=== PATIENT | male | born 1980 | race Caucasian/White ===

== ENCOUNTER 2016-10-23 10:27 | Inpatient (IN) ==
[2016-10-23] MEDS ORDERED: NORCO-10 PO ONE (11:45)
[2016-10-23] MEDS ORDERED: NS 1,000 ML IV ONE (11:45)
[2016-10-23] MEDS ORDERED: ZOFRAN IV ONE ×2 (11:45→13:29)
[2016-10-23 12:04] LABS: MANUAL DIFF NEEDED? NO
[2016-10-23 12:20] LABS: HEMOGLOBIN A1C 7.7 % (4.8-6.0)
[2016-10-23 12:22] LABS: BASO% 0.2 % (0.0-0.8); EOS# 0.01 X1000 (0.0-0.7); EOS% 0.1 % (0.0-10.0); HEMATOCRIT 39.6 % (42.0-52.0); HEMOGLOBIN 13.6 g/dL (14.0-18.0); IMM GRAN# 0.04 X1000 (0.0-0.04); IMM GRAN% 0.3 % (0.0-0.5); LYMPH# 0.72 X1000 (1.2-3.4); MCHC 34.3 g/dL (33-37); MCV 87.4 FL (81-99); MONO# 1.12 X1000 (0.11-0.59); MONO% 9.4 % (1.7-9.3); MPV 11.5 FL (7.4-10.4); PLT 86 X1000 (130-400); RBC 4.53 XMIL (4.7-6.1)
[2016-10-23 12:25] LABS: AGAP 13; ALBUMIN 3.6 g/dL (3.5-5.0); ALKALINE PHOSPHATASE 83 U/L (32-122); AMYLASE 16 U/L (20-200); BUN 8 mg/dL (8-22); CALCIUM 8.6 mg/dL (8.8-10.2); CHLORIDE 93 mmol/L (98-107); COSMO 263; GOT 94 U/L (10-34); GPT 123 U/L (10-44); LIPASE 24 U/L (13-60); POTASSIUM 3.6 mmol/L (3.5-5.1); SODIUM 128 mmol/L (136-145); TCO2 22 mmol/L (25-35)
[2016-10-23 12:39] LABS: URINE CULTURE PL NEEDED? NO
[2016-10-23 12:48] LABS: UR AMPHETAMINES QUAL NONE DETECTED (NONE DETECT); UR BARBITUATES QUAL NONE DETECTED (NONE DETECT); UR BENZODIAZEPIN QUAL PRESUMPTIVE POSITIVE (NONE DETECT); UR CANNABINOIDS QUAL NONE DETECTED (NONE DETECT); UR COCAINE QUAL NONE DETECTED (NONE DETECT); UR MDMA QUAL NONE DETECTED (NONE DETECT); UR METHADONE QUAL NONE DETECTED (NONE DETECT); UR METHAMPHETAMINE QUAL NONE DETECTED (NONE DETECT); UR OPIATES QUAL NONE DETECTED (NONE DETECT); UR OXYCODONE QUAL NONE DETECTED (NONE DETECT); UR PCP QUAL NONE DETECTED (NONE DETECT); UR TCA QUAL NONE DETECTED (NONE DETECT)
[2016-10-23 12:51] LABS: BILIRUBIN URINE NEGATIVE (NEGATIVE); BLOOD URINE TRACE (NEGATIVE); CLARITY CLEAR (CLEAR); COLOR AMBER; LEUKOCYTES URINE TRACE (NEGATIVE); NITRITE URINE NEGATIVE (NEGATIVE); PROTEIN URINE 1+(30 mg/dL) mg/dL (NEGATIVE); SP GRAVITY URINE 1.015; UROBILINOGEN URINE 1+(1 mg/dL)
[2016-10-23 12:52] LABS: URINE EPITHELIAL CELLS <10 /HPF (<10); URINE RBC <10 /HPF (<10); URINE SOURCE CLEAN CATCH; URINE WBC <10 /HPF (<10)
--- NOTE | 2016-10-23 13:13 | Diag Imaging Result Document ---
PROCEDURE NAME: LUMBAR SPINE - 10/23/2016 LUMBAR SPINE AP AND LATERAL WITH OBLIQUES, 6 VIEWS: FINDINGS: There is a mild superior endplate compression fracture to the L1 vertebra. Loss of height of between 25 and 33%. No other compressed vertebra. No subluxation. IMPRESSION: Mild compression fracture to the L1 vertebra.
[2016-10-23] MEDS ORDERED: MORPHINE IV ONE (13:21)
[2016-10-23] MEDS ORDERED: DILAUDID IV ONE (14:28)
[2016-10-23] MEDS ORDERED: DILAUDID ONE (14:29)
--- NOTE | 2016-10-23 14:47 | Diag Imaging Result Document ---
PROCEDURE NAME: MRI LUMBAR SPINE W/O CONTRAST - 10/23/2016 MRI LUMBAR SPINE WITHOUT: FINDINGS: Axial and sagittal images obtained in multiple sequences. There is edema within the upper half of the L1 vertebral. There is loss of height, approximately 25%, to the superior endplate. No other compression fracture. No subluxation. The conus is at L1. There are normal disks at the following levels: T12-L1, L1-2, L2-3, and L3-4. No spinal stenosis or neural foraminal narrowing at these levels. L4-5: There is a small disk bulge. Bilateral facet hypertrophy is present. There is mild spinal stenosis. Mild narrowing at each neural foramen. There is moderate bulging to the L5-S1 disk. Small focal disk protrusion on the right. There is mild to moderate narrowing of the right neural foramen. No spinal stenosis. IMPRESSION: 1. Mild recent compression fracture to the L1 vertebra. 2. Small focal disk protrusion on the right at L5-S1 narrowing the right neural foramen. A preliminary report was given at 2:32 p.m. [facility]
[2016-10-23] MEDS ORDERED: TYLENOL ONE (15:20)
[2016-10-23] MEDS ORDERED: MOTRIN ONE (15:20)
[2016-10-23] MEDS ORDERED: TYLENOL PO ONE (15:27)
[2016-10-23] MEDS ORDERED: MOTRIN PO ONE (15:27)
--- NOTE | 2016-10-23 16:06 | Diag Imaging Result Document ---
PROCEDURE NAME: US SCROTUM - 10/23/2016 SCROTAL ULTRASOUND: FINDINGS: Normal size to each testicle. The left testicle has slightly increased blood flow to it than the right. Normal echotexture to the left testicle. Slightly heterogeneous hypoechoic echotexture on the right. Tiny amount of fluid about the right testicle. Neither epididymis is enlarged. IMPRESSION: The right testicle is slightly heterogeneous compared to the left and has slightly decreased blood flow than the left. The results were discussed with Dr. Yeh in the emergency room at 3:15 p.m.
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
[2016-10-23] MEDS ORDERED: LEVAQUIN 750 MG/D5W 750 MG/150 ML IVPB IV ONE (16:24)
[2016-10-23] MEDS ORDERED: VANCOMYCIN 1 GM/NS 1 GM/250 ML IVPB IV ONE (16:24)
--- NOTE | 2016-10-23 17:22 | Diag Imaging Result Document ---
PROCEDURE NAME: CHEST-PORTABLE - 10/23/2016 SUPINE CHEST 2 VIEWS: FINDINGS: Poor inspiratory effort. The lungs are clear. There are no infiltrates. No contusions or pneumothoraces. Mediastinum is not widened. No pleural effusions identified. No cardiomegaly. IMPRESSION: Negative chest.
[2016-10-23] MEDS ORDERED: ZOFRAN IV PRN (17:38)
[2016-10-23] MEDS ORDERED: VANCOMYCIN IV PER PHARMACY MISC SCH (17:45)
[2016-10-23] MEDS: PROTONIX IV SCH (18:29)
[2016-10-23] MEDS: NS 1,000 ML IV SCH (18:29)
[2016-10-23] MEDS: SODIUM CHLORIDE 0.9% INJ SCH (18:29)
[2016-10-23] MEDS: DILAUDID IV PRN ×2 (18:44→21:54)
[2016-10-23] MEDS: ZOSYN 3.375 GM/NS 3.375 GM/50 ML IVPB IV SCH (20:23)
[2016-10-23] MEDS: VANCOMYCIN 2,000 MG in NS 500 ML IV SCH (20:23)
[2016-10-23] MEDS: DOXYCYCLINE PO SCH (20:23)
[2016-10-23] MEDS ORDERED: RESTORIL PO PRN (20:44)
[2016-10-23] MEDS: HUMALOG DOSE (PARKWAY) SUBQ SCH (21:04)
[2016-10-24] MEDS: LACTULOSE PO SCH ×3 (00:10→20:45)
[2016-10-24] MEDS ORDERED: TYLENOL PO PRN (00:11)
[2016-10-24] MEDS ORDERED: TYLENOL PO ONE (01:08)
[2016-10-24] MEDS: DILAUDID IV PRN ×7 (01:13→21:37)
[2016-10-24] MEDS: ZOSYN 3.375 GM/NS 3.375 GM/50 ML IVPB IV SCH ×2 (01:20→08:03)
[2016-10-24] MEDS: PROTONIX IV SCH ×3 (05:06→18:23)
[2016-10-24] MEDS: HUMALOG DOSE (PARKWAY) SUBQ SCH ×4 (06:07→22:05)
[2016-10-24 06:27] LABS: HEMATOCRIT 37.7 % (42.0-52.0); HEMOGLOBIN 12.7 g/dL (14.0-18.0); MCH 29.6 PG (27-31); MCHC 33.7 g/dL (33-37); MCV 87.9 FL (81-99); MPV 11.8 FL (7.4-10.4); RBC 4.29 XMIL (4.7-6.1)
[2016-10-24 06:44] LABS: AGAP 10; ALKALINE PHOSPHATASE 72 U/L (32-122); BUN 6 mg/dL (8-22); CALCIUM 8.3 mg/dL (8.8-10.2); CHLORIDE 99 mmol/L (98-107); COSMO 267; GOT 60 U/L (10-34); GPT 83 U/L (10-44); MAGNESIUM 1.7 mg/dL (1.5-2.7); POTASSIUM 3.7 mmol/L (3.5-5.1); SODIUM 132 mmol/L (136-145); TCO2 23 mmol/L (25-35); TOTAL PROTEIN 6.9 g/dL (6.3-8.3)
[2016-10-24] MEDS ORDERED: DILAUDID IV PRN (08:28)
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
[2016-10-24] MEDS: VANCOMYCIN 2,000 MG in NS 500 ML IV SCH ×2 (09:04→19:27)
[2016-10-24] MEDS: DOXYCYCLINE PO SCH ×2 (09:05→20:45)
--- NOTE | 2016-10-24 12:30 | Diag Imaging Result Document ---
PROCEDURE NAME: ABDOMEN/PELVIS W/WO CONTRAST - 10/24/2016 CT OF THE ABDOMEN AND PELVIS WITHOUT AND WITH CONTRAST: Images are obtained prior to and following intravenous contrast administration. COMPARISON: Compared with 04/01/2015. FINDINGS: There are tiny bilateral pleural effusions. There is hepatomegaly. The left lobe of the liver is particularly prominent in size but this appears to be largely chronic. There is possibly mild fatty infiltration of the liver. There is no focal liver lesion identified. There is splenomegaly with some interval enlargement of spleen compared to previous exam. There is a thin low-density area in the posterior superior aspect of the spleen. This may represent a small cleft which is more conspicuous on the current exam due to some technical improvement in detail. There is no associated perisplenic hemorrhage, which would be expected with a peripheral splenic laceration. There is mild retroperitoneal adenopathy which has increased. The gallbladder is surgically absent. There is distention of the common bile duct up to 2 cm, similar to the previous exam. There is no calcified common duct stone identified. There is no pancreatic mass or definite pancreatic inflammation identified. The distended common bile duct may represent post cholecystectomy change. There is no opaque stent present in the common bile duct. There is no gross intrahepatic biliary ductal dilatation identified. The adrenal glands and kidneys are unremarkable. There is no hydronephrosis. There is some mild distention of small bowel and colon, which may relate to ileus. The appendix appears normal. There is questionable pneumatosis in the right colon, but the right colon fuentes do not appear thickened, and there is no inflammation of pericolic fat. There is no other extraluminal gas identified. There is no abscess identified. There is no free air. There is minimal free fluid. There is mild compression fracture of the L1 vertebral body noted as seen on 09/2016 MRI lumbar spine. IMPRESSION: 1. Hepatosplenomegaly. No focal liver lesions. Probable small cleft in the posterior superior spleen. No perisplenic hemorrhage. 2. Distention of common bile duct similar to the previous exam and possibly related to the post cholecystectomy state. There is no opaque stent seen in the common bile duct. There is no gross intrahepatic biliary ductal dilatation identified. 3. Mild retroperitoneal adenopathy. 4. Mild distention of small bowel and colon which may relate to ileus. Questionable pneumatosis at right colon but no associated wall thickening. 5. Minimal free fluid. No free air. No abscess. 6. Mild compression fracture of L1 vertebral body noted. [facility]
[2016-10-24] MEDS ORDERED: MISC. PHARMACY COMMUNICATION SCH (13:00)
[2016-10-24] MEDS: MAXIPIME 2 GM/NS 2 GM/100 ML IVPB IV SCH ×2 (14:34→23:10)
[2016-10-24] MEDS: NS 1,000 ML IV SCH ×2 (15:43→17:08)
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
[2016-10-24] MEDS: SODIUM CHLORIDE 0.9% INJ SCH (18:14)
[2016-10-24] MEDS: MERREM 1 GM in NS 50 ML IV SCH (21:43)
[2016-10-24] MEDS: TYLENOL PO PRN (22:12)
[2016-10-25] MEDS: DILAUDID IV PRN ×7 (01:51→21:33)
[2016-10-25] MEDS: PROTONIX IV SCH ×2 (05:07→17:45)
[2016-10-25] MEDS: MERREM 1 GM in NS 50 ML IV SCH ×3 (05:08→21:34)
[2016-10-25] MEDS: MAXIPIME 2 GM/NS 2 GM/100 ML IVPB IV SCH (06:17)
[2016-10-25] MEDS: HUMALOG DOSE (PARKWAY) SUBQ SCH ×4 (06:19→20:54)
[2016-10-25 06:41] LABS: HEMATOCRIT 39.4 % (42.0-52.0); HEMOGLOBIN 13.2 g/dL (14.0-18.0); MCH 29.5 PG (27-31); MCHC 33.5 g/dL (33-37); MCV 87.9 FL (81-99); MPV 12.6 FL (7.4-10.4); RBC 4.48 XMIL (4.7-6.1)
[2016-10-25 06:48] LABS: AGAP 13; ALKALINE PHOSPHATASE 69 U/L (32-122); BUN 9 mg/dL (8-22); CALCIUM 8.3 mg/dL (8.8-10.2); CHLORIDE 100 mmol/L (98-107); COSMO 272; GOT 55 U/L (10-34); GPT 67 U/L (10-44); MAGNESIUM 1.9 mg/dL (1.5-2.7); POTASSIUM 3.4 mmol/L (3.5-5.1); SODIUM 136 mmol/L (136-145); TCO2 23 mmol/L (25-35); TOTAL PROTEIN 7.2 g/dL (6.3-8.3)
[2016-10-25] MEDS: VANCOMYCIN 2,000 MG in NS 500 ML IV SCH ×2 (08:22→19:46)
[2016-10-25] MEDS: LACTULOSE PO SCH ×2 (08:23→20:53)
[2016-10-25] MEDS: DOXYCYCLINE PO SCH ×2 (08:23→20:53)
[2016-10-25] MEDS: TYLENOL PO PRN ×2 (09:02→20:53)
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
[2016-10-25] MEDS: NS 1,000 ML IV SCH ×2 (15:32→15:35)
[2016-10-25] MEDS: SODIUM CHLORIDE 0.9% INJ SCH (17:44)
[2016-10-26] MEDS: DILAUDID IV PRN ×8 (00:30→22:44)
[2016-10-26] MEDS: MERREM 1 GM in NS 50 ML IV SCH ×2 (05:15→13:21)
[2016-10-26] MEDS: PROTONIX IV SCH ×2 (05:15→18:23)
[2016-10-26] MEDS: NS 1,000 ML IV SCH (05:18)
[2016-10-26] MEDS: HUMALOG DOSE (PARKWAY) SUBQ SCH ×4 (06:19→22:43)
[2016-10-26] MEDS: VANCOMYCIN 2,000 MG in NS 500 ML IV SCH ×2 (08:03→20:33)
[2016-10-26] MEDS: LACTULOSE PO SCH ×2 (08:03→20:33)
[2016-10-26] MEDS: DOXYCYCLINE PO SCH (08:03)
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
[2016-10-26] MEDS: TYLENOL PO PRN (18:23)
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
[2016-10-26] MEDS: XANAX PO PRN (22:47)
[2016-10-27] MEDS: TYLENOL PO PRN ×2 (00:21→21:21)
[2016-10-27] MEDS: DILAUDID IV PRN ×7 (01:34→21:15)
[2016-10-27] MEDS: NS 1,000 ML IV SCH ×2 (03:00→21:15)
[2016-10-27] MEDS: PROTONIX IV SCH ×2 (06:06→17:48)
[2016-10-27] MEDS: HUMALOG DOSE (PARKWAY) SUBQ SCH ×4 (06:06→21:25)
[2016-10-27 07:46] LABS: HEMATOCRIT 34.3 % (42.0-52.0); HEMOGLOBIN 11.6 g/dL (14.0-18.0); MCH 29.5 PG (27-31); MCHC 33.8 g/dL (33-37); MCV 87.3 FL (81-99); MPV 11.3 FL (7.4-10.4); RBC 3.93 XMIL (4.7-6.1)
[2016-10-27 08:00] LABS: INR 1.11 (0.86-1.15); PROTIME 14.6 Seconds (12.1-15.5)
[2016-10-27 08:02] LABS: AGAP 14; ALBUMIN 2.8 g/dL (3.5-5.0); ALKALINE PHOSPHATASE 55 U/L (32-122); BUN 8 mg/dL (8-22); CALCIUM 7.8 mg/dL (8.8-10.2); CHLORIDE 98 mmol/L (98-107); COSMO 265; GOT 51 U/L (10-34); GPT 45 U/L (10-44); MAGNESIUM 1.9 mg/dL (1.5-2.7); POTASSIUM 3.2 mmol/L (3.5-5.1); SODIUM 133 mmol/L (136-145); TCO2 21 mmol/L (25-35); TOTAL PROTEIN 6.7 g/dL (6.3-8.3)
[2016-10-27] MEDS ORDERED: NS 250 ML ONE (08:12)
[2016-10-27] MEDS ORDERED: NS 250 ML IV PRN (08:22)
[2016-10-27] MEDS ORDERED: SODIUM CHLORIDE 0.9% IV PRN (08:22)
--- NOTE | 2016-10-27 08:52 | PROGRESS NOTE ---
DATE: 10/27/2016 SUBJECTIVE: Patient notes he still hurting all over, still having frequent fever. PHYSICAL EXAMINATION: Vital Signs: T-current 100, T-max 102.9 degrees at midnight, pulse 78, respiratory rate 24, BP 155/89, saturation 99% on room air. General: Patient is awake, alert, oriented. He is currently in no respiratory distress. He is pleasant to talk with. Neck: Supple. CV: Regular rate. Chest: Clear, nonlabored. Abdomen: Soft. Extremities: Moves all extremities, although decreased movement secondary to pain in his low back. LABS: CBC essentially unchanged. CMP normal with the exception of a potassium at 3.2. ALT and AST continue slight improvement, down at 51 and 45. ASSESSMENT: 1. Moderate protein calorie malnutrition. 2. Acute hepatitis. 3. Hypocalcemia. 4. Methicillin-resistant Staphylococcus aureus septicemia. PLAN: We will attempt to place a PICC line today. We will recheck blood cultures and we will follow. We will continue on vancomycin per ID's discussion. We will continue to follow his diabetes. It is certainly very concerning that the patient has a history of IV drug use, hepatitis C, and continues to abuse opiates at home. It is concerning that he will need IV antibiotics for several more weeks. Him going home with a PICC line certainly may not be our best option but may be the only option that we have. We will continue to follow. cc: Baljinder Urbina MD
--- NOTE | 2016-10-27 10:10 | Diag Imaging Result Document ---
PROCEDURE NAME: CHEST-PORTABLE - 10/27/2016 PORTABLE CHEST: COMPARISON: Compared to 10/23/2016. FINDINGS: Interval placement of a right-sided PICC line. The tip overlies the distal superior vena cava near the junction with the right atrium. The heart is not enlarged. The vessels are not distended. No pleural effusion is identified. Atelectasis versus a small infiltrate in the right base. IMPRESSION: 1. Right-sided PICC line in good position. 2. Poor inspiratory effort with atelectasis or small infiltrate in the right base.
[2016-10-27] MEDS: LACTULOSE PO SCH ×2 (10:12→21:15)
[2016-10-27] MEDS: VANCOMYCIN 2,000 MG in NS 500 ML IV SCH ×2 (11:11→21:14)
--- NOTE | 2016-10-27 14:20 | ECHO REPORT ---
ORDER DATE: 10/25/2016 ECHOCARDIOGRAPHIC MEASUREMENTS: 1. Interventricular septum 1.4. Left ventricular posterior wall 1.4. Diastolic diameter 4.0. Left atrium 5. Aorta 3.2. Aortic valve leaflets were trileaflet. There appeared to be calcification of noncoronary cusp however leaflets not well visualized. 2. Pulmonic valve not well visualized. Mitral valve was normal. Tricuspid valve was normal. 3. There is mild left atrial enlargement . 4. There was trace mitral regurgitation. Mild tricuspid regurgitation. Peak velocity across the tricuspid valve was 3.2 m/sec. 5. Peak velocity across the aortic valve less than 2 m/sec. By Doppler studies there is no aortic stenosis or regurgitation. Technically suboptimal study. 6. Indication for study was to rule out endocarditis. RECOMMENDATIONS: Would recommend transesophageal echocardiogram to rule out endocarditis. This was a technically suboptimal study. There was calcification noted on the non coronary cusp of the aortic valve with not well visualized. To rule out vegetation recommend MAUREEN. There is no pericardial effusion. cc: MD Baljinder Salcedo MD
[2016-10-28] MEDS: DILAUDID IV PRN ×6 (01:10→21:08)
[2016-10-28] MEDS: PROTONIX IV SCH ×2 (06:37→17:01)
[2016-10-28] MEDS: TYLENOL PO PRN ×2 (06:37→16:30)
[2016-10-28] MEDS: SODIUM CHLORIDE 0.9% INJ SCH (06:39)
[2016-10-28] MEDS: HUMALOG DOSE (PARKWAY) SUBQ SCH ×4 (06:39→21:07)
[2016-10-28] MEDS: LACTULOSE PO SCH ×3 (08:03→21:07)
[2016-10-28] MEDS: KLOR-CON PO ONE ×2 (08:03→09:50)
[2016-10-28] MEDS: VANCOMYCIN 2,000 MG in NS 500 ML IV SCH ×2 (09:42→19:56)
[2016-10-28] MEDS ORDERED: CLAVE ANES SET 100 IN 11965 ONE (11:42)
[2016-10-28] MEDS ORDERED: XYLOCAINE 4% TOPICAL SOLUTION ONE (11:42)
[2016-10-28] MEDS ORDERED: NS 1,000 ML ONE (11:42)
[2016-10-28] MEDS ORDERED: XYLOCAINE 2% VISCOUS ONE (11:42)
[2016-10-28] MEDS ORDERED: CLAVE TWINSITE 32 IN 11959 ONE (11:47)
[2016-10-28] MEDS ORDERED: DUONEB (A & A) INH ONE (12:00)
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
[2016-10-28] MEDS ORDERED: DIPRIVAN 1% ONE (12:53)
[2016-10-28] MEDS ORDERED: FENTANYL ONE (12:53)
[2016-10-28] MEDS ORDERED: ZOFRAN ONE (13:03)
[2016-10-28] MEDS ORDERED: XYLOCAINE-MPF 2% ONE (13:03)
--- NOTE | 2016-10-28 13:18 | PROGRESS NOTE ---
DATE: 10/28/2016 SUBJECTIVE: This patient states that he is about the same. He is complaining of generalized pain mostly in his back. No fever today but we have a positive culture that was done yesterday that showed a gram-positive cocci. Today this patient will have a MAUREEN done to rule out endocarditis. For now, we will continue with the same management. OBJECTIVE: Vital Signs: Temperature 99.1 degrees, pulse 83, respiratory rate 18, blood pressure 144/78, O2 saturation 99 on room air. HEENT: Head normocephalic. No trauma. PERRLA. Neck: Supple. No JVD. No masses. Central trachea. Chest: Clear to auscultation. No wheezing. No rales. Abdomen: Soft. Mild tenderness to palpation at the level of the periumbilical area. Extremities: No edema. No clubbing. No cyanosis. Neurological: The patient is alert and oriented x3. No focal neurological deficits. He is complaining of lower back pain. LABORATORY: WBC 6.6, hemoglobin 11.6, hematocrit 34.3, platelets 96,000. Sodium 133, potassium 3.2 chloride 98, bicarbonate 21. BUN 8, creatinine 0.5, glucose 112, calcium 7.8, AST 51, ALT 45, alkaline phosphatase 55, albumin 2.8. ASSESSMENT AND PLAN: 1. MRSA septicemia. Yesterday we did again a blood culture that showed gram-positive cocci. Also a PICC line was placed. Today this patient is getting a MAUREEN to rule out endocarditis. We will continue following the recommendation of Infectious Disease Department. 2. Acute hepatitis. There is mild elevation of LFTs, we will continue to monitor. 3. Hypocalcemia. Corrected with albumin normal. 4. Hyponatremia. Stable will monitor. 5. Hypokalemia. Will replace the potassium. This patient had a PICC line placed yesterday, and it is working fine. He has a past medical history of IV drug use. I have been talking to the social work instructor to see if we can send this patient to an LTAC and not home to decrease the possibility of IV drug abuse again. I talked to the patient and apparently the last time he did IV drugs was a couple months ago. Of course a PICC line is not at this moment our best option but this patient needs IV antibiotics for an extended period of time. cc: Suleiman Venegas MD
--- NOTE | 2016-10-28 15:36 | Transesophageal Echocardiogram ---
DATE: 10/28/2016 PROCEDURE: Transesophageal echocardiogram. DATE OF STUDY: 10/28/2016. INDICATION: Staphylococcus bacteremia. Evaluate for endocarditis. PROCEDURE IN DETAIL: Mr. Santana is brought to the catheterization laboratory in a fasting state. Informed consent was obtained. He was anesthetized via viscous lidocaine and Hurricaine spray. He was sedated with propofol per Anesthesia. Transesophageal echocardiogram probe was passed without difficulties. The images were obtained in multiple views. FINDINGS: 1. The right atrium appears to be normal in size. There is no evidence of shunting across the interatrial septum with evaluation of color Doppler, as well as injection of agitated saline contrast. 2. There is mild tricuspid regurgitation. No evidence of vegetation adherent to the valve. 3. Normal RV size and systolic function. 4. No evidence of significant pulmonic insufficiency. The pulmonic valve was difficult to visualize, but no evidence of vegetation adherent to the valve. 5. There is no evidence of clot visualized in the left atrium or left atrial appendage. Good velocities were visualized in the left atrial appendage. 6. No mitral prolapse. There is mild mitral regurgitation. No evidence of vegetation adherent to the mitral valve leaflets. 7. Left ventricle appears to be normal in size. There is normal LV systolic function. Estimated EF is greater than 55%. 8. Aortic valve appears trileaflet. It opens well. There is no evidence of stenosis. No insufficiency. No evidence of vegetation adherent to the aortic valve. 9. Aorta appears normal in visualized segments with the exception of mild atherosclerosis seen in the descending thoracic aorta. 10. No pericardial effusions seen. cc: MD Paige Mattson CRNP
[2016-10-28] MEDS: RIFAMPIN PO SCH (16:18)
[2016-10-28] MEDS: XANAX PO PRN (16:19)
[2016-10-28] MEDS: NS 1,000 ML IV SCH (19:36)
[2016-10-29] MEDS: DILAUDID IV PRN ×8 (00:40→23:31)
[2016-10-29] MEDS: PROTONIX IV SCH ×2 (05:07→17:51)
[2016-10-29 06:42] LABS: MANUAL DIFF NEEDED? NO
[2016-10-29 06:56] LABS: BASO% 0.5 % (0.0-0.8); EOS# 0.14 X1000 (0.0-0.7); EOS% 2.4 % (0.0-10.0); HEMATOCRIT 33.5 % (42.0-52.0); HEMOGLOBIN 11.1 g/dL (14.0-18.0); IMM GRAN# 0.06 X1000 (0.0-0.04); LYMPH# 1.77 X1000 (1.2-3.4); LYMPH% 29.8 % (20.5-51.1); MCH 29.4 PG (27-31); MCHC 33.1 g/dL (33-37); MCV 88.6 FL (81-99); MONO# 0.47 X1000 (0.11-0.59); MONO% 7.9 % (1.7-9.3); MPV 11.3 FL (7.4-10.4); NEUT% 58.4 % (42.2-75.2); PLT 157 X1000 (130-400); RBC 3.78 XMIL (4.7-6.1)
[2016-10-29 07:15] LABS: AGAP 10; BUN 6 mg/dL (8-22); CALCIUM 7.8 mg/dL (8.8-10.2); CHLORIDE 103 mmol/L (98-107); COSMO 273; POTASSIUM 3.4 mmol/L (3.5-5.1); SODIUM 138 mmol/L (136-145); TCO2 25 mmol/L (25-35)
[2016-10-29] MEDS: HUMALOG DOSE (PARKWAY) SUBQ SCH ×4 (07:28→21:55)
[2016-10-29] MEDS: RIFAMPIN PO SCH (09:01)
[2016-10-29] MEDS: VANCOMYCIN 2,000 MG in NS 500 ML IV SCH ×2 (09:01→20:00)
[2016-10-29] MEDS: LACTULOSE PO SCH ×2 (09:02→20:00)
[2016-10-29] MEDS ORDERED: KLOR-CON PO ONE (10:27)
[2016-10-29] MEDS: NS 1,000 ML IV SCH ×3 (12:09→22:29)
--- NOTE | 2016-10-29 14:31 | PROGRESS NOTE ---
DATE: 10/29/2016 SUBJECTIVE: This patient states that he is feeling a little bit better. He denies nausea, vomiting, diarrhea, constipation. Yesterday, his PICC line was removed because we have a positive culture result that showed Staphylococcus aureus from 10/27/2016. We sent the tip of the PICC line for culture. Infectious Disease department has been notified and they started this patient on rifampin 600 mg IV daily. Also, we will continue with vancomycin. OBJECTIVE: Vital Signs: Temperature 98.9, pulse 74, respiratory rate 18, blood pressure 153/85, oxygen saturation 97% on room air. HEENT: Normocephalic. No trauma. PERRLA. Neck: Supple. No JVD. No masses. Central trachea. Chest: Clear to auscultation. No wheezing. No rales. Abdomen: Soft, nontender, nondistended. No hepatosplenomegaly. Extremities: No edema. No clubbing. No cyanosis. Neurological: The patient is alert and oriented x3. No focal deficits, just generalized weakness and pain. LABORATORY: WBC 5.9, hemoglobin 11.1, hematocrit 33.5, platelet 157. Sodium 138, potassium 3.4, chloride 103, bicarbonate 25. BUN 6, creatinine 0.5, glucose 130, calcium 7.8. ASSESSMENT AND PLAN: 1. MRSA septicemia. Yesterday, we removed his PICC line that was placed the day before yesterday, because we have a positive culture again that showed gram-positive cocci/Staphylococcus aureus. Infectious Disease department added rifampin to his medications. 2. Acute hepatitis. Continue to monitor. 3. Hypokalemia, I will replace the potassium today. 4. Hyponatremia, resolved. cc: Suleiman Venegas MD
[2016-10-29] MEDS: SODIUM CHLORIDE 0.9% INJ SCH (17:51)
[2016-10-29] MEDS: TYLENOL PO PRN (22:30)
[2016-10-29] MEDS: XANAX PO PRN (22:30)
[2016-10-30] MEDS: DILAUDID IV PRN ×6 (02:44→20:35)
[2016-10-30] MEDS: NS 1,000 ML IV SCH ×2 (04:39→18:24)
[2016-10-30] MEDS: PROTONIX IV SCH (05:47)
[2016-10-30] MEDS: HUMALOG DOSE (PARKWAY) SUBQ SCH ×4 (06:06→21:06)
[2016-10-30 06:31] LABS: MANUAL DIFF NEEDED? NO
[2016-10-30 06:35] LABS: BASO% 0.5 % (0.0-0.8); EOS# 0.27 X1000 (0.0-0.7); EOS% 4.5 % (0.0-10.0); HEMATOCRIT 33.7 % (42.0-52.0); HEMOGLOBIN 11.1 g/dL (14.0-18.0); IMM GRAN% 1.7 % (0.0-0.5); LYMPH# 1.92 X1000 (1.2-3.4); LYMPH% 32.2 % (20.5-51.1); MCH 29.2 PG (27-31); MCHC 32.9 g/dL (33-37); MCV 88.7 FL (81-99); MONO# 0.54 X1000 (0.11-0.59); MPV 11.7 FL (7.4-10.4); NEUT% 52.1 % (42.2-75.2); PLT 150 X1000 (130-400)
[2016-10-30 07:14] LABS: AGAP 11; BUN 5 mg/dL (8-22); CALCIUM 7.8 mg/dL (8.8-10.2); CHLORIDE 102 mmol/L (98-107); COSMO 269; POTASSIUM 3.6 mmol/L (3.5-5.1); SODIUM 136 mmol/L (136-145); TCO2 23 mmol/L (25-35)
[2016-10-30] MEDS: VANCOMYCIN 2,000 MG in NS 500 ML IV SCH ×2 (09:36→20:35)
--- NOTE | 2016-10-30 09:48 | PROGRESS NOTE ---
DATE: 10/30/2016 SUBJECTIVE: Patient resting quietly in bed. No complaints voiced at this time. OBJECTIVE: Vital Signs: Currently show a temperature of 98.8, pulse 73, respirations 18, blood pressure 151/93, saturating 99% on room air. It is noted that last night on 10/29/2016 at 8 p.m., he had a temperature of 101.1. Tylenol 650 p.o. was given and he has not had a temp since that time. General: This is a 35-year-old, male, lying in the bed. Answers all questions appropriately. HEENT: Normocephalic and atraumatic. Pupils are equal, round, reactive to light. The extraocular movements are intact. Oropharynx and nares are clear. Neck: Supple. Lungs: Clear to auscultation bilaterally with equal lung expansion and chest wall movement. Heart: With regular rate and rhythm. No murmurs, rubs, or gallops. Abdomen: Soft, nontender, nondistended. Bowel sounds are present x4 quadrants. Extremities: No clubbing, cyanosis, or edema. Neurological: The cranial nerves 2-12 appear grossly intact. LABORATORY DATA: Shows a white blood cell count of 5.97, hemoglobin 11.1, hematocrit 33.7, platelets 150. Sodium 136, potassium 3.6, chloride 102, CO2 of 23, BUN of 5 with a creatinine of 0.5. ASSESSMENT AND PLAN: 1. MRSA septicemia. It is noted as stated above, he had a temperature overnight. He was started on some rifampin 600 mg p.o. daily by Infectious Disease, Dr. Mosher, yesterday. We will not change any of his antibiotics at this time. Our plan is to recheck a set of blood cultures x2 in the a.m. 2. Acute hepatitis. We continue to monitor. 3. Hypokalemia, was resolved. 4. Hypertension. We added Norvasc 5 mg b.i.d. and will continue to monitor his blood pressure. Plan of care has been discussed with the patient and he verbalizes understanding. Dictated by WM Tong for Suleiman Venegas MD cc: WM Tong MD
[2016-10-30] MEDS: RIFAMPIN PO SCH (09:56)
[2016-10-30] MEDS: LACTULOSE PO SCH ×2 (09:56→20:35)
[2016-10-30] MEDS: NORVASC PO SCH ×2 (09:56→20:35)
[2016-10-30] MEDS: TYLENOL PO PRN (17:26)
[2016-10-30] MEDS: XANAX PO PRN (20:35)
[2016-10-31] MEDS: DILAUDID IV PRN ×8 (00:11→22:08)
[2016-10-31 05:53] LABS: MANUAL DIFF NEEDED? NO
[2016-10-31 06:00] LABS: BASO% 0.3 % (0.0-0.8); EOS# 0.16 X1000 (0.0-0.7); EOS% 2.5 % (0.0-10.0); HEMATOCRIT 35.4 % (42.0-52.0); HEMOGLOBIN 11.8 g/dL (14.0-18.0); IMM GRAN# 0.12 X1000 (0.0-0.04); IMM GRAN% 1.9 % (0.0-0.5); LYMPH# 2.06 X1000 (1.2-3.4); LYMPH% 32.2 % (20.5-51.1); MCH 29.4 PG (27-31); MCHC 33.3 g/dL (33-37); MCV 88.1 FL (81-99); MONO# 0.48 X1000 (0.11-0.59); MONO% 7.5 % (1.7-9.3); MPV 11.1 FL (7.4-10.4); NEUT% 55.6 % (42.2-75.2); PLT 220 X1000 (130-400); RBC 4.02 XMIL (4.7-6.1)
[2016-10-31 06:11] LABS: AGAP 10; BUN 4 mg/dL (8-22); CALCIUM 8.2 mg/dL (8.8-10.2); CHLORIDE 101 mmol/L (98-107); COSMO 271; POTASSIUM 3.4 mmol/L (3.5-5.1); SODIUM 137 mmol/L (136-145); TCO2 26 mmol/L (25-35)
[2016-10-31] MEDS: PRILOSEC PO SCH (06:16)
[2016-10-31] MEDS: HUMALOG DOSE (PARKWAY) SUBQ SCH ×4 (06:16→22:08)
[2016-10-31] MEDS: NORVASC PO SCH ×2 (09:00→20:22)
[2016-10-31] MEDS: RIFAMPIN PO SCH (09:00)
[2016-10-31] MEDS: VANCOMYCIN 2,000 MG in NS 500 ML IV SCH ×2 (09:00→20:22)
[2016-10-31] MEDS: LACTULOSE PO SCH ×2 (09:04→20:24)
[2016-10-31] MEDS: NS 1,000 ML IV SCH (09:11)
--- NOTE | 2016-10-31 11:05 | PROGRESS NOTE ---
DATE: 10/31/2016 SUBJECTIVE: The patient is sitting up on side of the bed. No complaints voiced this a.m. He is noted to have his back brace in place. OBJECTIVE: Vital Signs: Temperature 98.5 degrees, pulse 65, respirations 18, blood pressure is 149/82, satting 97% on room air. General: This is a 35-year-old male , sitting on the side of the bed. Answers questions appropriately. HEENT: Normocephalic and atraumatic. Pupils are equal, round, reactive to light. Extraocular movements are intact. Oropharynx and nares are clear. Neck: Supple. Lungs: Clear to auscultation bilaterally with equal lung expansion and chest wall movement. Heart: With regular rate and rhythm. No murmurs, rubs, or gallops. Abdomen: Soft, nontender, nondistended. Bowel sounds are present x4 quadrants. Extremities: No clubbing, cyanosis, or edema. Neurological: The cranial nerves 2-12 are grossly intact. LABORATORY DATA: Showed a white blood cell count of 6.39, hemoglobin 11.8, hematocrit 35.4, platelets 220. Sodium 137, potassium 3.4, chloride 101, CO2 26, BUN of 4, creatinine of 0.5. Glucose of 101, calcium 8.2. Blood cultures x2 this a.m. are pending. ASSESSMENT/PLAN: 1. Methicillin-resistant Staphylococcus aureus septicemia. He has remained afebrile over the past 24 hours. He continues on his intravenous and oral antibiotics. We rechecked blood cultures times two this morning; those are pending. We will recheck complete blood count and basic metabolic panel in the morning. 2. An acute hepatitis. We will check comprehensive metabolic panel in the morning and evaluate his liver enzymes. 3. Hypokalemia. We will recheck laboratories in the morning. 4. Hypertension. Improved since adding his Norvasc, and we will continue to monitor. DISPOSITION: Our plan is once we get these new set of blood cultures resulted and are clear, then will be able to discharge the patient home at that time on antibiotics with follow up with Dr. Mosher at time of discharge. Dictated by WM Tong for Mykel Lamas MD cc: WM Tong MD I have seen and examined aptient and I agree with the plan above. Patient has a h/x of IV drug use in the past, but denies using any recently. Will be pending his blood culture to negative before putting another line Patient will need IV antibiotics for at least 2 weeks and follow up with Dr. Mosher on outpatient. [facility]
[2016-10-31] MEDS: TYLENOL PO PRN (20:22)
[2016-10-31] MEDS: XANAX PO PRN (20:23)
[2016-11-01] MEDS: NS 1,000 ML IV SCH ×2 (01:06→14:21)
[2016-11-01] MEDS: DILAUDID IV PRN ×5 (01:06→20:05)
[2016-11-01 08:14] LABS: MANUAL DIFF NEEDED? NO
[2016-11-01] MEDS: NORVASC PO SCH ×2 (08:35→20:05)
[2016-11-01] MEDS: VANCOMYCIN 2,000 MG in NS 500 ML IV SCH ×2 (08:35→20:05)
[2016-11-01] MEDS: RIFAMPIN PO SCH (08:35)
[2016-11-01] MEDS: LACTULOSE PO SCH ×2 (08:36→20:04)
[2016-11-01 08:38] LABS: BASO% 0.5 % (0.0-0.8); EOS# 0.17 X1000 (0.0-0.7); EOS% 2.2 % (0.0-10.0); HEMATOCRIT 33.7 % (42.0-52.0); HEMOGLOBIN 11.4 g/dL (14.0-18.0); IMM GRAN# 0.13 X1000 (0.0-0.04); IMM GRAN% 1.7 % (0.0-0.5); MCH 29.6 PG (27-31); MCHC 33.8 g/dL (33-37); MCV 87.5 FL (81-99); MONO# 0.56 X1000 (0.11-0.59); MONO% 7.4 % (1.7-9.3); MPV 10.7 FL (7.4-10.4); NEUT% 63.2 % (42.2-75.2); PLT 273 X1000 (130-400); RBC 3.85 XMIL (4.7-6.1)
[2016-11-01 08:40] LABS: AGAP 10; BUN 5 mg/dL (8-22); CALCIUM 8.2 mg/dL (8.8-10.2); CHLORIDE 103 mmol/L (98-107); COSMO 273; POTASSIUM 3.8 mmol/L (3.5-5.1); SODIUM 138 mmol/L (136-145); TCO2 25 mmol/L (25-35)
[2016-11-01 08:41] LABS: ALBUMIN 3.2 g/dL (3.5-5.0); ALKALINE PHOSPHATASE 79 U/L (32-122); GOT 45 U/L (10-34); GPT 42 U/L (10-44); TOTAL PROTEIN 7.3 g/dL (6.3-8.3)
[2016-11-01 08:47] LABS: SED RATE 71 mm/hr (0-15)
[2016-11-01] MEDS: HUMALOG DOSE (PARKWAY) SUBQ SCH ×4 (11:34→20:04)
[2016-11-01] MEDS: PRILOSEC PO SCH (11:35)
--- NOTE | 2016-11-01 13:29 | PROGRESS NOTE ---
DATE: 11/01/2016 SUBJECTIVE: Today Mr. Santana refers to be doing a lot better. Denies any acute complaints. OBJECTIVE: His vital signs show blood pressure 162/89, pulse 78, respirations 18, temperature is 98.1. The patient is saturating 97% on room air. General: Mr. Santana is a 35-year-old male. He is in bed. No significant distress. Mucosa is pink and moist. Anicteric and acyanotic. Neck: Supple. Chest: Good air entry bilaterally. No crepitations. No rhonchi. Cardiovascular: Regular rate and rhythm. No murmurs, no rubs and no gallops. Abdomen: Soft, nontender. No hepatosplenomegaly. Extremities: No pedal edema. OFFAL BALER: The patient is alert and oriented x4. There is no focal neurological deficit. DIAGNOSTIC DATA: WBC is 7.59, hemoglobin 11.4, platelet count of 273. ESR is 71. Chemistries are reviewed and completely unremarkable. AST is slightly elevated at 42. The rest of the chemistries are normal. So far, blood cultures done on 10/31/2016 are still pending. The catheter tip is now growth. ASSESSMENT: 1. Methicillin-resistant Staphylococcus aureus bacteremia. Unsure the source. The patient did have a MAUREEN which was unremarkable for any vegetations. Still pending the last blood cultures to make sure it is completely out before we put in a PICC line. 2. History of hepatitic C. Liver enzymes are stable. We are going to do the genotype and PCR for hepatitis C. The patient is to follow up with ID on outpatient basis. 3. Hypertension, improved. 4. Mild recent L1 compression fracture noted. Unsure if this has been seated with the MRSA bacteremia; however, the MRI did not show any diskitis or osteomyelitis. We will continue with the pain management and hopefully get the patient to follow up with ID and also Orthopedics as outpatient. cc: Mykel Lamas MD
[2016-11-01] MEDS: TYLENOL PO PRN (17:25)
[2016-11-01] MEDS: XANAX PO PRN (20:05)
[2016-11-01] MEDS: NORCO-7.5 PO PRN (23:05)
[2016-11-02] MEDS: XANAX PO PRN (01:55)
[2016-11-02] MEDS: DILAUDID IV PRN ×4 (01:55→19:43)
[2016-11-02] MEDS: NORCO-7.5 PO PRN ×2 (05:04→11:04)
[2016-11-02] MEDS: NS 1,000 ML IV SCH (06:43)
[2016-11-02] MEDS: HUMALOG DOSE (PARKWAY) SUBQ SCH ×4 (06:44→20:57)
[2016-11-02] MEDS: PRILOSEC PO SCH (06:44)
[2016-11-02] MEDS: RIFAMPIN PO SCH ×2 (07:55→08:01)
[2016-11-02] MEDS: LACTULOSE PO SCH ×3 (07:55→20:56)
[2016-11-02] MEDS: NORVASC PO SCH ×3 (07:55→20:57)
[2016-11-02] MEDS: VANCOMYCIN 2,000 MG in NS 500 ML IV SCH ×2 (07:55→19:37)
[2016-11-02] MEDS: TYLENOL PO PRN ×2 (14:02→21:01)
--- NOTE | 2016-11-02 17:07 | PROGRESS NOTE ---
DATE: 11/02/2016 SUBJECTIVE: Today Mr. Santana referred to be hurting a lot. According to him, since his Dilaudid was dropped from 4 mg q.3 to q.6h, he has just been hurting, and he wants his medications back to where it was. We had a very lengthy discussion and he also did tell me that he normally goes to the [facility] in [place] on [address], but he does not remember the name of the clinic for pain management and that he is on methadone 100 mg every day from the clinic. He also said was previously on Roxicodone from a doctor in [facility] by name Dr. Weeks. We had a very lengthy discussion about his pain medication needs, and I told him that I will find out how much of methadone he is on and if we get to know how much, then I will put him back on, but the plan is to gradually taper him off the IV narcotics. OBJECTIVELY: Vitals: Blood pressure is 152/87, pulse of 100, respiration is 18 , temperature is 99.4 degrees. General: Mr. Santana is a 35-year-old male. He is in bed. Did not seem to be in any distress. HEENT: Mucosa is pink and moist. Anicteric. Acyanotic. Neck: Supple. Chest: Good air entry bilateral. No crepitations. No rhonchi. Cardiovascular: Regular rate and rhythm. Abdomen: Soft, nontender. Extremities: No pedal edema. Neurologic: There is no focal neurological deficit. The patient does have mild tenderness to the lower back. LABORATORY DATA: None for today. The blood culture which was done on 10/31/2016, one of them is positive for gram -positive cocci. The other one is negative and also the catheter tip on 10/28/2016 has no growth. ASSESSMENT: 1. MRSA bacteremia, unsure of the source. I think this is introduced from the skin since patient has active IV drug abuse. MAUREEN was unremarkable. There was not any vegetation. The blood culture on 10/31/2016, one of them is positive for gram-positive cocci. I am not sure if it is the same MRSA or it is the skin epidermidis which could have been a contamination. In any case, patient will need to have at least 2 weeks of IV antibiotics after a negative blood culture result. 2. History of hepatitis C. Liver enzymes are stable. A PCR and genotype have been ordered. 3. Hypertension. 4. Mild recent L1 compression fracture noted. 5. Drug abuse. The patient is very adamant in wanting his pain medications and the fact that it has been reduced makes him mad. I did tell him that the purpose of the therapy is to gradually wean him off the pain medications, and then he said he is on methadone 100 mg. I did speak with the pharmacist over here and there were some verifications from the state. So far what I gather from the pharmacist adhesive bonding machine operator today was that the patient was last prescribed oxycodone from [place], [place]. There has been some contact to the Pain [facility], [facility] at and they are going to fax a release of medical information form for the patient to sign so that we can fax it back to them and then they will be able to tell us how much the patient is on. Of note, the patient has not been placed on any methadone since his admission. We will continue working to know how much the patient is on so we can start him back on what he was on before. Of note patient is now only just needing IV antibiotics which I think can be done in an LTAC. I did discuss this with the patient. He was not very willing because the very 1st thing he asked me was what about his pain medications over there, and I told him they do address everything in completeness and that IV antibiotics will qualify him to go to an LTAC, which I honestly believe that is what he needs at this point, which since we are not doing anything else, that will make him needing aggressive inpatient care. I will put in a consult for social work for them to evaluate him for LTAC. Of note, patient is current active IV drug user, so we cannot let him go home with any IV access (a PICC line or anything of the sort). He would need to be either inhospital to complete the entire treatment or an LTAC to complete the entire treatment. Nurse electronic coils supervisor was able to communicate with the Pain clinic and it was confirmed that patient was on liquid methadone 100mg daily but he has not been there since August 2016 so he is not been on methadone since then. I wont start him on methadone yet. cc: Mykel Lamas MD [facility]
[2016-11-02] MEDS: CATAPRES PO SCH (20:57)
[2016-11-03] MEDS: DILAUDID IV PRN (05:21)
[2016-11-03] MEDS: HUMALOG DOSE (PARKWAY) SUBQ SCH ×3 (06:18→16:33)
[2016-11-03] MEDS: PRILOSEC PO SCH (06:28)
[2016-11-03] MEDS: VANCOMYCIN 2,000 MG in NS 500 ML IV SCH (08:32)
[2016-11-03] MEDS: RIFAMPIN PO SCH (08:32)
[2016-11-03] MEDS: CATAPRES PO SCH ×2 (08:33→22:06)
[2016-11-03] MEDS: NORVASC PO SCH ×2 (08:33→22:07)
[2016-11-03] MEDS: LACTULOSE PO SCH (08:33)
[2016-11-03] MEDS: LOVENOX SUBQ SCH (08:33)
[2016-11-03] MEDS ORDERED: METHADONE PO SCH ×2 (11:15→11:36)
--- NOTE | 2016-11-03 13:10 | PROGRESS NOTE ---
DATE: 11/03/2016 SUBJECTIVE: Mr. Santana states that he is hurting a lot. He requests Dilaudid to be decreased to every 3 hours again. He denies chest pain, shortness of breath, fever, chills. OBJECTIVE: Vital Signs: Blood pressure is 107/78, heart rate 74, respirations 16, temperature is 98.2 degrees oral with room air saturations of 97%. Cardiovascular: Regular rate and rhythm. S1 and S2 appreciated. Pulmonary: Breath sounds are clear with no increased work of breathing noted. Gastrointestinal: Abdomen is soft, nontender, nondistended with bowel sounds in all 4 quadrants. Extremities: No clubbing, cyanosis, or edema. Calves are nontender. Pulses are palpable x4. Neurologic: He is alert and oriented. LABS: Blood sugars are ranging in the 80s to 105 range. ASSESSMENT AND PLAN: 1. Methicillin-resistant Staphylococcus aureus bacteremia. Most likely introduced through the skin via recent IV drug abuse. No vegetation was found on MAUREEN. He did have 1 positive blood culture on October 31. Blood cultures were repeated on November 02; we are pending results. He will need 2 weeks of antibiotics from the last negative set of blood cultures. We will continue his vancomycin and rifampin. 2. History of hepatitis C. Liver enzymes are stable. PCR and genotype are pending. 3. Hypertension. 4. Recent L1 compression fracture. continue back brace and PT. 5. History of IV drug abuse. The patient has been very adamant about wanting his IV pain medications. He is requesting Dilaudid 4 mg every 2 hours. As per previous discussions, we will stop his Dilaudid IV. We will attempt to verify him being in a Methadone clinic and regimen, if any. Add Toradol for breakthrough pain. Disposition. The patient is requiring IV antibiotics and will require long- term IV antibiotics. As he is a current active IV drug user we cannot let him go home with any IV access, whether it be a PICC line or peripheral. It was discussed with the patient that he will qualify for LTAC. The patient is currently refusing to go because he is concerned that he would not receive IV pain medications there. He is aware that he will no longer receive IV medications at this hospital. If we can confirm his Methadone use and dose, we will continue. Dictated by WM Zapata for Shayan Hernandez MD cc: WM Zapata MD pt examined, agree with above , explained we could not prescribe long terms narcotics [facility]
[2016-11-03] MEDS: XANAX PO PRN ×2 (14:18→22:07)
[2016-11-03] MEDS: TORADOL IV PRN ×2 (15:34→22:08)
[2016-11-04] MEDS: HUMALOG DOSE (PARKWAY) SUBQ SCH ×4 (04:13→16:09)
[2016-11-04] MEDS: LACTULOSE PO SCH ×3 (04:14→21:43)
[2016-11-04 06:29] LABS: HEMATOCRIT 36.6 % (42.0-52.0); HEMOGLOBIN 11.9 g/dL (14.0-18.0); MCH 28.9 PG (27-31); MCHC 32.5 g/dL (33-37); MCV 88.8 FL (81-99); MPV 10.7 FL (7.4-10.4); RBC 4.12 XMIL (4.7-6.1)
[2016-11-04 06:30] LABS: ALBUMIN 3.2 g/dL (3.5-5.0); CALCIUM 8.6 mg/dL (8.8-10.2); TOTAL BILIRUBIN 0.3 mg/dL (0.20-1.00); TOTAL PROTEIN 7.4 g/dL (6.3-8.3)
[2016-11-04] MEDS ORDERED: NS 1,000 ML IV SCH (06:42)
[2016-11-04] MEDS: PRILOSEC PO SCH (07:04)
[2016-11-04] MEDS: TORADOL IV PRN (07:04)
[2016-11-04] MEDS: PERCOCET-10 PO PRN ×4 (07:43→21:43)
[2016-11-04] MEDS ORDERED: NS 500 ML IV SCH (08:17)
--- NOTE | 2016-11-04 08:36 | PROGRESS NOTE ---
DATE: 11/04/2016 SUBJECTIVE: The patient without any new complaints today. He still complains of pain. Interestingly, he obviously does not attend the Methadone Clinic. He continues to want IV pain medication. PHYSICAL EXAMINATION: Vital Signs reviewed. Temperature 98 degrees, pulse 65, respiratory 16, BP 144/82. Saturation 99% on room air. General: The patient is awake, alert. He is currently in no respiratory distress. He is lying flat in the bed. He appears much improved from my last encounter 7 days ago. HEENT: Normocephalic, atraumatic. Neck supple. CV: Regular rate. Chest clear and nonlabored. Abdomen is soft. Extremities: He moves all extremities. Neurologic: No changes. LABORATORY DATA: CBC and CMP essentially normal with the exception of BUN has increased to 27, creatinine to 2.4. ASSESSMENT: 1. Acute renal failure, likely prerenal. We will add normal saline and recheck. We will stop his Toradol. 2. [id number] pain. The patient was given Toradol yesterday. His creatinine is up today. This certainly could be related. We will stop his Toradol and will follow. We will place him on Percocet. He obviously does not attend the Methadone Clinic, therefore, we will not start him back on the dose of methadone that he claims to be on. Again, we will stop his IV pain medications. 3. Hepatitis C. Liver functions are stable. He will need to follow outpatient. 4. L1 compression fracture. Continue back brace and physical therapy. 5. History of IV drug abuse. As noted, multiple times in previous notes, the patient is unable to be discharged home for his methicillin-resistant Staphylococcus aureus bacteremia secondary to requiring IV pain medication for 2 more weeks. His most recent blood culture on 11/02/2013 is negative, and that would be the starting date for the 2 weeks. However, the patient's history would certainly suggests that he would use any IV that he was discharged home with for illicit purposes. Therefore, plan to either continue him in the hospital or, hopefully, transition to an LTAC. cc: Baljinder Urbina MD
[2016-11-04] MEDS: CATAPRES PO SCH ×2 (10:34→21:44)
[2016-11-04] MEDS: NORVASC PO SCH ×2 (10:34→21:43)
[2016-11-04] MEDS: LOVENOX SUBQ SCH ×2 (10:34→10:36)
[2016-11-04] MEDS: RIFAMPIN PO SCH (10:34)
[2016-11-04 13:37] LABS: CALCIUM 8.8 mg/dL (8.8-10.2); POTASSIUM 4.2 mmol/L (3.5-5.1)
[2016-11-04] MEDS: NS 1,000 ML IV SCH (18:59)
[2016-11-04] MEDS: XANAX PO PRN (21:43)
[2016-11-05] MEDS: HUMALOG DOSE (PARKWAY) SUBQ SCH ×5 (01:41→22:16)
[2016-11-05] MEDS: PERCOCET-10 PO PRN ×4 (04:01→21:19)
[2016-11-05] MEDS: PRILOSEC PO SCH (06:28)
[2016-11-05 06:58] LABS: CALCIUM 8.3 mg/dL (8.8-10.2); HEMATOCRIT 32.5 % (42.0-52.0); HEMOGLOBIN 10.5 g/dL (14.0-18.0); MCH 28.8 PG (27-31); MCHC 32.3 g/dL (33-37); POTASSIUM 4.5 mmol/L (3.5-5.1); RBC 3.65 XMIL (4.7-6.1)
--- NOTE | 2016-11-05 08:08 | PROGRESS NOTE ---
DATE: 11/05/2016 SUBJECTIVE: Patient notes that he is still hurting, although he does not complain with the pain as much today as he has in the past. Notes that he is getting better. States the Toradol helped. OBJECTIVE: Vital signs: Temperature 97, pulse 63, respiratory 18, BP 126/64, saturating 99% on room air. General: Patient is awake, alert, oriented. He is lying in bed. He is in no respiratory distress. Pleasant to talk with. Speech is regular. Memory is intact. Neck: Supple. CV: Regular rate. Chest: Clear and unlabored. Abdomen: Soft, nondistended. Extremities: Moves all extremities, although painful movement of the lower extremities secondary to his recent compression fracture. Still having pain over his lumbar spine. LABS: CBC normal. Sodium 136, BUN of 34, creatinine 2.4, calcium 8.3. ASSESSMENT: 1. Acute renal failure. Serum creatinine has bumped up slightly to 2.4. Therefore, his Toradol has been held. We will change from vancomycin to daptomycin to see if this will help. 2. Hepatitis C. He will need to follow up outpatient with GI. 3. Hypertension. 4. L1 compression fracture. 5. Known history of IV drug abuse. This has caused issues with discharge planning as patient certainly cannot be discharged home with an IV. He currently is on day 13 of a 2 week IV treatment after his recent blood culture was negative. We will stop Toradol and continue to follow. cc: Baljinder Urbina MD
[2016-11-05] MEDS ORDERED: CUBICIN IV SCH (09:00)
[2016-11-05] MEDS ORDERED: NS IV SCH (09:00)
[2016-11-05] MEDS: RIFAMPIN PO SCH (09:08)
[2016-11-05] MEDS: NS 1,000 ML IV SCH (09:08)
[2016-11-05] MEDS: CATAPRES PO SCH ×2 (09:09→21:19)
[2016-11-05] MEDS: LACTULOSE PO SCH ×2 (09:09→21:19)
[2016-11-05] MEDS: LOVENOX SUBQ SCH (09:09)
[2016-11-05] MEDS: NORVASC PO SCH ×2 (09:09→21:19)
[2016-11-05] MEDS: CUBICIN (FOR INPATIENT USE) 600 MG in NS 100 ML IV SCH (09:22)
[2016-11-05] MEDS: XANAX PO PRN (21:19)
[2016-11-06] MEDS: PERCOCET-10 PO PRN ×5 (01:45→20:03)
[2016-11-06] MEDS: PRILOSEC PO SCH (06:13)
[2016-11-06] MEDS: NS 1,000 ML IV SCH (06:14)
[2016-11-06 06:45] LABS: HEMATOCRIT 33.1 % (42.0-52.0); HEMOGLOBIN 10.9 g/dL (14.0-18.0); MCH 28.9 PG (27-31); MCHC 32.9 g/dL (33-37); MCV 87.8 FL (81-99); MPV 10.8 FL (7.4-10.4); RBC 3.77 XMIL (4.7-6.1)
[2016-11-06 06:47] LABS: ALBUMIN 3.4 g/dL (3.5-5.0); POTASSIUM 4.7 mmol/L (3.5-5.1); TOTAL BILIRUBIN 0.3 mg/dL (0.20-1.00); TOTAL PROTEIN 7.6 g/dL (6.3-8.3)
[2016-11-06] MEDS: HUMALOG DOSE (PARKWAY) SUBQ SCH ×4 (07:34→23:05)
--- NOTE | 2016-11-06 08:24 | PROGRESS NOTE ---
DATE: 11/06/2016 SUBJECTIVE: Patient without any new complaints. He denies any chest pain or palpitations. OBJECTIVE: Vital Signs: Reviewed. Temperature 99 degrees, pulse 73, respiratory rate 18, BP 156/83, saturation 98% on room air. General: The patient is awake, alert. He is currently in no respiratory distress. He is sitting up on the side of the bed. Neck: Supple. CV: Regular rate. Chest: Clear. Abdomen: Soft. Extremities: Moves all extremities. Neurologic: No changes. Laboratories: CBC normal. BUN 31, creatinine 2.3. ASSESSMENT: 1. Acute renal failure. Changed his vancomycin to daptomycin to see if this would that would help. We will continue intravenous fluids. We will not restart Toradol or any other NSAIDs at this point. Patient is aware. 2. Hepatitis C. Continue to follow. Will need outpatient workup. 3. Hypertension. Blood pressure remains elevated. At this point, we will not start an BALJINDER inhibitor. We will continue his Norvasc, increase his clonidine to 3 times a day, and follow 4. L1 compression fracture. Continue back brace and physical therapy. 5. Methicillin-resistant Staphylococcus aureus bacteremia. The patient currently is on day 2 of 14. He has 12 more days of intravenous antibiotics. cc: Baljinder Urbina MD
[2016-11-06] MEDS: CATAPRES PO SCH ×3 (09:45→18:01)
[2016-11-06] MEDS: NORVASC PO SCH ×2 (09:45→20:03)
[2016-11-06] MEDS: LOVENOX SUBQ SCH (09:45)
[2016-11-06] MEDS: RIFAMPIN PO SCH (09:47)
[2016-11-06] MEDS: LACTULOSE PO SCH ×2 (09:47→21:27)
[2016-11-06] MEDS: CUBICIN (FOR INPATIENT USE) 600 MG in NS 100 ML IV SCH (09:48)
[2016-11-06] MEDS: XANAX PO PRN (20:03)
[2016-11-07] MEDS: PERCOCET-10 PO PRN ×6 (00:36→21:28)
[2016-11-07] MEDS: XANAX PO PRN ×2 (00:38→21:27)
[2016-11-07 06:02] LABS: HEMOGLOBIN 10.8 g/dL (14.0-18.0); MCHC 32.7 g/dL (33-37); MCV 88.7 FL (81-99); MPV 10.6 FL (7.4-10.4); RBC 3.72 XMIL (4.7-6.1)
[2016-11-07] MEDS: PRILOSEC PO SCH (06:16)
[2016-11-07] MEDS: NS 1,000 ML IV SCH (06:16)
[2016-11-07 06:29] LABS: ALBUMIN 3.3 g/dL (3.5-5.0); CALCIUM 9.2 mg/dL (8.8-10.2); MAGNESIUM 1.8 mg/dL (1.5-2.7); POTASSIUM 4.7 mmol/L (3.5-5.1); TOTAL BILIRUBIN 0.4 mg/dL (0.20-1.00)
[2016-11-07] MEDS: HUMALOG DOSE (PARKWAY) SUBQ SCH ×4 (06:46→21:36)
--- NOTE | 2016-11-07 08:51 | PROGRESS NOTE ---
DATE: 11/07/2016 SUBJECTIVE: The patient currently is on day 3 of 14 of IV antibiotics. He has no new complaints. Notes that he was able to ambulate the contreras last night. He is starting to get a little bit stronger. Still having frequent episodes of pain. PHYSICAL EXAMINATION: Vital Signs: Temperature 99, pulse 81, respiratory rate 18, BP 159/92, saturation 99% on room air. General: The patient is awake, alert, oriented. He is currently in no respiratory distress. He is pleasant to talk with. Speech is regular. Memory is intact. Neck: Supple. CV: Regular rate. Chest: Relatively clear. Abdomen: Soft. Extremities: Moves all extremities. Neurologic: No focal changes. DIAGNOSTIC DATA: CBC normal. CMP with a BUN of 30, creatinine at 2. ASSESSMENT: 1. Acute renal failure, likely secondary to vancomycin, has improved slightly after switching to daptomycin. 2. Methicillin-resistant Staphylococcus aureus bacteremia. Patient is on day 3 of 14 of IV antibiotics as noted previously. He cannot go home with an IV given his propensity and willingness to continue to use his IV for illicit purposes. 3. Hypertension. Patient's clonidine was increased yesterday as well as his Norvasc. We will continue to follow. If staying elevated, we will consider adding hydralazine versus an BALJINDER inhibitor. 4. L1 compression fracture. PLAN: As noted above. Continue to follow. Recheck labs in the a.m. Follow his blood pressures and adjust as needed. cc: Baljinder Urbina MD
[2016-11-07] MEDS: LOVENOX SUBQ SCH (09:14)
[2016-11-07] MEDS: LACTULOSE PO SCH ×2 (09:15→21:22)
[2016-11-07] MEDS: CATAPRES PO SCH ×3 (09:15→16:13)
[2016-11-07] MEDS: RIFAMPIN PO SCH (09:15)
[2016-11-07] MEDS: NORVASC PO SCH ×2 (09:15→21:22)
[2016-11-07] MEDS: CUBICIN (FOR INPATIENT USE) 600 MG in NS 100 ML IV SCH (09:51)
[2016-11-07] MEDS ORDERED: NICODERM PATCH TD PRN (20:29)
[2016-11-08] MEDS: PERCOCET-10 PO PRN ×5 (02:20→20:58)
[2016-11-08 06:07] LABS: HEMATOCRIT 35.3 % (42.0-52.0); HEMOGLOBIN 11.3 g/dL (14.0-18.0); MCH 28.7 PG (27-31); MCV 89.6 FL (81-99); MPV 10.8 FL (7.4-10.4); RBC 3.94 XMIL (4.7-6.1)
[2016-11-08] MEDS: XANAX PO PRN ×2 (06:11→20:59)
[2016-11-08] MEDS: PRILOSEC PO SCH (06:11)
[2016-11-08] MEDS: HUMALOG DOSE (PARKWAY) SUBQ SCH ×4 (06:39→21:01)
[2016-11-08 06:41] LABS: ALBUMIN 3.4 g/dL (3.5-5.0); CALCIUM 9.4 mg/dL (8.8-10.2); POTASSIUM 5.2 mmol/L (3.5-5.1); TOTAL BILIRUBIN 0.4 mg/dL (0.20-1.00); TOTAL PROTEIN 8.5 g/dL (6.3-8.3)
[2016-11-08] MEDS: CATAPRES PO SCH ×3 (08:53→16:19)
[2016-11-08] MEDS: LACTULOSE PO SCH ×2 (08:53→21:01)
[2016-11-08] MEDS: NORVASC PO SCH ×2 (08:53→20:59)
[2016-11-08] MEDS: RIFAMPIN PO SCH (08:53)
[2016-11-08] MEDS: LOVENOX SUBQ SCH (08:53)
[2016-11-08] MEDS: CUBICIN (FOR INPATIENT USE) 600 MG in NS 100 ML IV SCH (08:59)
--- NOTE | 2016-11-08 12:40 | PROGRESS NOTE ---
DATE: 11/08/2016 SUBJECTIVE: Patient without new complaints. PHYSICAL EXAMINATION: Vital Signs: Temperature 97.4 degrees, pulse 78 to 105, respiratory rate 18, blood pressure 145/82, saturation 100% on room air. General: Patient is a well-developed, overweight male who is in no respiratory distress. He is pleasant to talk with. Neck: Supple. Cardiovascular: Regular rate. Chest: Clear. Abdomen: Soft. Extremities: Moves all extremities. ASSESSMENT: 1. Methicillin-resistant Staphylococcus aureus bacteremia. 2. Acute renal failure, likely secondary to vancomycin. Creatinine is decreased to 2.0 and is stable. 3. Hyperkalemia. Will we will continue to follow. Recheck in the a.m. 4. Chronic tobacco abuse. The patient has continued to go downstairs to smoke. He has continued to smoke in his room. Discussed with him that unfortunately at this point, if this is the decision he makes, he will have to be escorted out of the hospital. Discussed with him that this could be treacherous and his infection could ultimately come back and lead to an early . Discussed with patient the perils of smoking that also would lead to an early . 5. Hepatitis C. 6. Hypertension. 7. L1 compression fracture. Patient currently is on pain medication. He has been transitioned over to oral medicines. Discussed with him that if he is, indeed, going downstairs and using his IV for illicit purposes, not only would we have to stop his Percocet, but this also could lead to an early . PLAN: He currently is day 4 of 14. He has 10 days left of IV daptomycin. cc: Baljinder Urbina MD
[2016-11-08] MEDS: RESTORIL PO PRN (20:59)
[2016-11-09] MEDS: XANAX PO PRN ×2 (04:23→21:35)
[2016-11-09] MEDS: PERCOCET-10 PO PRN ×5 (04:23→21:35)
[2016-11-09] MEDS: PRILOSEC PO SCH ×2 (05:41→06:06)
[2016-11-09 06:06] LABS: HEMATOCRIT 35.4 % (42.0-52.0); HEMOGLOBIN 11.6 g/dL (14.0-18.0); MCH 28.8 PG (27-31); MCHC 32.8 g/dL (33-37); MCV 87.8 FL (81-99); MPV 10.5 FL (7.4-10.4); RBC 4.03 XMIL (4.7-6.1)
[2016-11-09] MEDS: HUMALOG DOSE (PARKWAY) SUBQ SCH ×4 (06:13→21:36)
[2016-11-09 06:46] LABS: ALBUMIN 3.4 g/dL (3.5-5.0); CALCIUM 9.1 mg/dL (8.8-10.2); MAGNESIUM 1.8 mg/dL (1.5-2.7); POTASSIUM 4.6 mmol/L (3.5-5.1); TOTAL BILIRUBIN 0.3 mg/dL (0.20-1.00); TOTAL PROTEIN 8.4 g/dL (6.3-8.3)
[2016-11-09] MEDS ORDERED: LOVENOX ONE (09:02)
[2016-11-09] MEDS ORDERED: NORVASC ONE (09:03)
[2016-11-09] MEDS ORDERED: CATAPRES ONE (09:03)
[2016-11-09] MEDS: CUBICIN (FOR INPATIENT USE) 600 MG in NS 100 ML IV SCH (09:10)
[2016-11-09] MEDS: PERCOCET-10 ONE ×2 (09:10→09:38)
[2016-11-09] MEDS: RIFAMPIN PO SCH (09:11)
[2016-11-09] MEDS: LACTULOSE PO SCH ×2 (09:12→21:39)
[2016-11-09] MEDS: CATAPRES PO SCH ×3 (09:36→16:36)
[2016-11-09] MEDS: NORVASC PO SCH ×2 (09:38→21:35)
[2016-11-09] MEDS: LOVENOX SUBQ SCH (09:38)
--- NOTE | 2016-11-09 10:26 | PROGRESS NOTE ---
DATE: 11/09/2016 SUBJECTIVE: This patient has no new complaints. PHYSICAL EXAMINATION: Vital Signs: Blood pressure is 133/77, with a heart rate of 72, respirations are 18, temperature is 98.2 degrees oral, with room air saturations of 98%. General: This is a well developed, overweight male who is lying in the bed, in no distress. Cardiovascular: Regular rate and rhythm. S1 and S2 appreciated. Pulmonary: Breath sounds are clear. No increased work of breathing noted. Gastrointestinal: Abdomen is soft, nontender, nondistended with bowel sounds in all 4 quadrants. Extremities: No clubbing, cyanosis, or edema. Calves are nontender. Pulses are palpable x4. Skin: Warm and dry. LABS: WBC is 5.6, with a hemoglobin of 11.6, hematocrit 35.4, and platelets of 203,000. Sodium is 132, potassium 4.6, BUN 30, creatinine 2, with a glucose of 109. ASSESSMENT: 1. Methicillin-resistant Staphylococcus aureus bacteremia. We will continue with his current regimen. He is on day 5 of 14 of antibiotics. 2. Hyperkalemia. We will continue to follow labs and treat as appropriate. 3. Continued tobacco abuse. The patient has not smoked in the room or left the floor to smoke in the last shift. We will continue to follow and monitor the patient. 4. Hepatitis C. 5. Hypertension. 6. L1 compression fracture. We will continue with oral pain medications. Continue to wear the brace as instructed. Dictated by WM Zapata for Baljinder Urbina MD cc: WM Zapata MD
[2016-11-09] MEDS: RESTORIL PO PRN (21:35)
[2016-11-10] MEDS: XANAX PO PRN ×2 (05:32→21:39)
[2016-11-10] MEDS: PRILOSEC PO SCH ×2 (05:32→06:20)
[2016-11-10] MEDS: PERCOCET-10 PO PRN ×5 (05:32→21:39)
[2016-11-10] MEDS: HUMALOG DOSE (PARKWAY) SUBQ SCH ×4 (06:34→21:40)
--- NOTE | 2016-11-10 07:47 | PROGRESS NOTE ---
DATE: 11/10/2016 SUBJECTIVE: No complaints. PHYSICAL EXAMINATION: Vital Signs: Reviewed. Temperature 99 degrees, pulse 74, respiratory rate 16, BP 141/80. General: Patient is well developed, well nourished. Currently in no respiratory distress. He is currently day 6 of 14 on his IV antibiotics. HEENT: Normocephalic. Neck: Supple. CV: Regular rate. Chest: Clear and nonlabored. Abdomen: Soft. Extremities: Moves all extremities. Neurologic: No focal changes. Skin: Warm and dry. No rashes. LABORATORY DATA: Labs reviewed. ASSESSMENT: 1. Methicillin-resistant Staphylococcus aureus. We will continue to follow. He needs 14 total days of intravenous antibiotics. 2. Hepatitis C. 3. L1 compression fracture, doing better. Patient is able to start ambulating. PLAN: We will continue patient in the hospital unless his insurance will allow him to go home and come back with IV daily doses of daptomycin. cc: Baljinder Urbina MD
[2016-11-10] MEDS: CUBICIN (FOR INPATIENT USE) 600 MG in NS 100 ML IV SCH (09:13)
[2016-11-10] MEDS: CATAPRES PO SCH ×3 (09:16→16:44)
[2016-11-10] MEDS: NORVASC PO SCH ×2 (09:16→21:39)
[2016-11-10] MEDS: RIFAMPIN PO SCH (09:16)
[2016-11-10] MEDS: LOVENOX SUBQ SCH (09:19)
[2016-11-10] MEDS: LACTULOSE PO SCH ×2 (09:19→21:38)
[2016-11-10] MEDS: RESTORIL PO PRN (21:39)
[2016-11-10 22:14] LABS: HCV GENOTYPE RESOLUTION SEE COMMENTS; HEPATITIS C GENOTYPE SEE COMMENTS; X-REFLEX CHARGE HCV GENO RES YES
[2016-11-11] MEDS: XANAX PO PRN ×2 (02:38→21:40)
[2016-11-11] MEDS: PERCOCET-10 PO PRN ×5 (02:38→18:45)
[2016-11-11] MEDS: HUMALOG DOSE (PARKWAY) SUBQ SCH ×4 (06:03→21:56)
[2016-11-11] MEDS: PRILOSEC PO SCH (06:04)
--- NOTE | 2016-11-11 07:36 | PROGRESS NOTE ---
DATE: 11/11/2016 SUBJECTIVE: No complaints. OBJECTIVE: Vital Signs: Stable. Temperature 98 degrees, pulse 75, respiratory rate 20, blood pressure 122/76, saturation 99% on room air. General: The patient is awake, alert, currently in no respiratory distress. Pleasant to talk with. Speech is regular. Memory is intact. Neck: Supple. Cardiovascular: Regular rate. Chest: Clear. Abdomen: Soft. ASSESSMENT: 1. Acute renal failure. Serum creatinine is 2.1. We will continue to follow. It has been changed from vancomycin to daptomycin. 2. Day 7 of 14 on daptomycin, secondary to methicillin-resistant Staphylococcus aureus bacteremia. 3. Methicillin-resistant Staphylococcus aureus bacteremia. 4. Hepatitis C. The patient will need to follow up outpatient. 5. L1 compression fracture. PLAN: Patient is stable for discharge home whenever it is available for him to continue daptomycin daily for the next 7 days. Otherwise, he will remain in the hospital. cc: Baljinder Urbina MD
[2016-11-11] MEDS: LOVENOX SUBQ SCH (09:11)
[2016-11-11] MEDS: LACTULOSE PO SCH ×2 (09:11→21:56)
[2016-11-11] MEDS: CUBICIN (FOR INPATIENT USE) 600 MG in NS 100 ML IV SCH (09:11)
[2016-11-11] MEDS: NORVASC PO SCH ×2 (09:12→21:40)
[2016-11-11] MEDS: RIFAMPIN PO SCH (09:12)
[2016-11-11] MEDS: CATAPRES PO SCH ×3 (09:12→16:24)
[2016-11-11] MEDS: RESTORIL PO PRN (21:40)
[2016-11-12] MEDS: PERCOCET-10 PO PRN ×3 (01:21→10:35)
[2016-11-12 06:03] LABS: HEMATOCRIT 34.2 % (42.0-52.0); HEMOGLOBIN 11.3 g/dL (14.0-18.0); MCH 28.6 PG (27-31); MCV 86.6 FL (81-99); MPV 10.8 FL (7.4-10.4); RBC 3.95 XMIL (4.7-6.1)
[2016-11-12 06:19] LABS: ALBUMIN 3.4 g/dL (3.5-5.0); CALCIUM 9.2 mg/dL (8.8-10.2); POTASSIUM 4.6 mmol/L (3.5-5.1); TOTAL BILIRUBIN 0.3 mg/dL (0.20-1.00); TOTAL PROTEIN 8.3 g/dL (6.3-8.3)
[2016-11-12] MEDS: PRILOSEC PO SCH (06:23)
[2016-11-12] MEDS: HUMALOG DOSE (PARKWAY) SUBQ SCH ×2 (06:25→10:36)
[2016-11-12 07:29] VITALS: BP 145/76
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
[2016-11-12] MEDS: RIFAMPIN PO SCH (08:44)
[2016-11-12] MEDS: CATAPRES PO SCH (08:44)
[2016-11-12] MEDS: CUBICIN (FOR INPATIENT USE) 600 MG in NS 100 ML IV SCH (08:44)
[2016-11-12] MEDS: NORVASC PO SCH (08:44)
[2016-11-12] MEDS: LOVENOX SUBQ SCH (08:44)
[2016-11-12] MEDS: LACTULOSE PO SCH (10:04)
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
== END 2016-11-12 13:08 | disposition home or self-care (01) ==
LOC: P.ED 10:27 → P.MEDSURG 16:41 → SUATTDRO 16:41 → P.MEDSURG 11-08 09:22
PROVIDERS: ATTEND Family Medicine

== ENCOUNTER 2018-09-27 14:53 | Inpatient (IN) ==
[2018-09-27 18:28] LABS: BASO# 0.02 X1000 (0.0-0.2); BASO% 0.4 % (0.0-0.8); EOS# 0.08 X1000 (0.0-0.7); EOS% 1.5 % (0.0-10.0); HEMATOCRIT 40.8 % (42.0-52.0); HEMOGLOBIN 14.2 g/dL (14.0-18.0); LYMPH# 2.11 X1000 (1.2-3.4); LYMPH% 38.3 % (20.5-51.1); MCHC 34.8 g/dL (33-37); MCV 83.3 FL (81-99); MONO# 0.41 X1000 (0.11-0.59); MONO% 7.4 % (1.7-9.3); MPV 11.4 FL (7.4-10.4); NEUT# 2.89 X1000 (1.4-6.5); NEUT% 52.4 % (42.2-75.2); PLT 109 X1000 (130-400); RDW 14.2 % (11.5-14.5); WBC 5.51 X1000 (4.8-10.8)
[2018-09-27 18:41] LABS: HEMOGLOBIN A1C 13.9 % (4.8-6.0)
[2018-09-27 18:57] LABS: AGAP 9; ALBUMIN 3.9 g/dL (3.5-5.0); ALKALINE PHOSPHATASE 86 U/L (32-122); BUN 6 mg/dL (8-22); CALCIUM 9.1 mg/dL (8.8-10.2); CHLORIDE 95 mmol/L (98-107); COSMO 278; CREATININE 0.7 mg/dL (0.7-1.2); ESTIMATED GFR > 60; GOT 31 U/L (10-34); GPT 41 U/L (10-44); POTASSIUM 3.8 mmol/L (3.5-5.1); SODIUM 130 mmol/L (136-145); TCO2 26 mmol/L (25-35); TOTAL BILIRUBIN 0.43 mg/dL (0.20-1.00); TOTAL PROTEIN 7.9 g/dL (6.3-8.3)
[2018-09-27 19:00] LABS: GLUCOSE 445 mg/dL (70-104)
[2018-09-27] MEDS ORDERED: HUMULIN R SUBQ ONE (19:02)
[2018-09-27] MEDS: LOVENOX SUBQ SCH (19:49)
[2018-09-27] MEDS: SUBUTEX SL SCH (19:49)
[2018-09-27] MEDS ORDERED: NS 1,000 ML IV SCH (20:15)
--- NOTE | 2018-09-27 20:40 | HISTORY AND PHYSICAL ---
CHIEF COMPLAINT: Chest pain on the right side with swelling of right leg for the last few days. HISTORY OF PRESENT ILLNESS: He is a 37-year-old white gentleman noncompliant, history of IV drug abuse, working in [employer], came in with above symptoms. Patient has a positive Homans sign. Admitted to the hospital because of the rule out PE. He was tachycardic and venous Doppler showed distal posterior tibial vein thrombosis. The patient was started on Lovenox followed by thrombophilia workup. PAST MEDICAL HISTORY: L1 compression fracture, metabolic syndrome, hepatitis C virus, hyperlipidemia, hypertension, type 2 diabetes, hyperuricemia, chronic back pain. PAST SURGICAL HISTORY: Gallbladder surgery, carpal tunnel surgery, history of MRSA septicemia with drug abuse, history of multiple skin soft tissue infections due to skin popping with drug abuse. MEDICINES: Suboxone, Lantus. Not able to tolerate metformin. ALLERGIES: Penicillin. SOCIAL HISTORY: Working in [employer], single, smoking 2 packs a day, socially drinks alcohol. Using drug abuse is crystal meth. FAMILY HISTORY: Father of acute respiratory failure. Mom is healthy. PHYSICAL EXAMINATION: Low-grade fever. Tachycardic in my office. Blood pressure stable, 5 feet 11, 190 pounds. HEENT: Within normal limits. NECK: Supple. CHEST: Bilateral air entry. HEART: Sounds are regular, tachycardic. BELLY: Is soft, nontender. Good bowel sounds. SKIN: Multiple needle tracking markings noted. Unable to get the veins . EXTREMITIES: Right leg is swollen. Positive Homans sign and sensory exam is intact. No obvious deficits noted. INVESTIGATIONS: CBC. White cell count 5.3, hematocrit 40.8, platelets 109,000. D-dimer is negative. Sodium 130, potassium 3.8, glucose 445, A1c 13.9. LFTs were normal. Cardiac enzymes were normal. TSH is normal. ASSESSMENT AND PLAN: 1. A 37-year-old white male admitted to the hospital with a deep vein thrombosis in the right leg with chest pain, rule out pulmonary embolism, CT pulmonary angiogram. 2. Uncontrolled diabetes. Increasing the Lantus slowly. A1c is very high. 3. Chronic pain on Suboxone. 4. Insulin protocol and poor intravenous axis and will follow up on the pending labs. cc: Duy Spencer MD
[2018-09-27] MEDS ORDERED: SUBOXONE 8 MG/2 MG FILM SL SCH (21:00)
[2018-09-27] MEDS ORDERED: INSULIN PEN NEEDLES ONE (21:41)
[2018-09-27] MEDS: BASAGLAR SUBQ SCH (22:45)
[2018-09-27] MEDS: HUMULIN R SUBQ SCH (22:46)
[2018-09-28] MEDS: SUBUTEX SL SCH ×3 (01:15→20:04)
[2018-09-28 06:21] LABS: CHOLESTEROL 153 mg/dL (0-200); HDL 40 mg/dL (35-55); LDL 95 mg/dL; TRIGLYCERIDES 89 mg/dL (39-160); VLDL 18 mg/dL
[2018-09-28] MEDS: HUMULIN R SUBQ SCH ×4 (06:24→20:11)
--- NOTE | 2018-09-28 07:27 | Diag Imaging Result Doc PS360 ---
EXAM: CT ANGIOGRM PULMONARY ARTERIES HISTORY: possible blood clot TECHNIQUE: CT chest with intravenous contrast. Pulmonary arterial protocol. MIP images obtained. COMPARISON: None. FINDINGS: Normal opacification of the pulmonary arteries and the major branches. No thoracic aortic aneurysm or dissection. No cardiomegaly. No pleural effusions. Possible thickening to the wall of the distal esophagus. Calcified granuloma in the right lower lobe. No consolidation. No bronchiectasis. Tiny nonspecific nodular density anteriorly in the right middle lobe. Mildly prominent subcarinal lymph nodes. No other adenopathy. Limited images through the upper abdomen reveal an enlarged liver. The gallbladder has been removed. IMPRESSION: 1.No pulmonary emboli 2.Questionable thickening to the distal esophagus 3.Hepatomegaly and cholecystectomy 4.A preliminary report was given at 11:14 p.m. on 09/27/2018 This exam was performed using automated exposure control, adjustment of mA or kV according to patient size, and/or use of iterative reconstruction technique. Electronically signed by Pato Gonzalez 09/28/2018 7:25 AM
[2018-09-28] MEDS: LOVENOX SUBQ SCH ×2 (08:42→20:05)
[2018-09-28] MEDS ORDERED: SALINE LOCK IV FLUID XX ONE (14:07)
[2018-09-28] MEDS ORDERED: SODIUM CHLORIDE 0.9% INJ SCH (14:15)
[2018-09-28] MEDS: ZOFRAN IV PRN ×2 (14:42→20:04)
[2018-09-28] MEDS: PROTONIX IV SCH (14:42)
[2018-09-28] MEDS: BASAGLAR SUBQ SCH (20:10)
--- NOTE | 2018-09-28 21:12 | PROGRESS NOTE ---
DATE: 09/28/2018 SUBJECT: The patient is a little better and CT of the chest findings discussed. Currently on detox program. Blood sugars still running high. EXAMINATION: Temperature is 98 degrees, pulse 85, blood pressure is stable.HEENT: Within normal limits. Neck: Supple. Chest: Clear to auscultation. Heart: Sounds are regular. Belly: Is soft, nontender. Good bowel sounds. No obvious deficits. LABS: Blood sugar 179, triglycerides 89, cholesterol 153, LDL 95. TSH, B12 is normal. Hemoglobin A1c 13.9. Uric acid is normal. CT scan of the pulmonary arteriogram no PE. Thickening of the distal esophagus, hepatomegaly, cholecystectomy. ASSESSMENT AND PLAN: 1. Right leg deep vein thrombosis distal vein unprovoked and follow up on thrombophilia workup. Will slowly swap into Xarelto. Continue on the Lovenox. 2. Chronic pain on buprenorphine 8 mg sublingual b.i.d. 3. Uncontrolled diabetes. Plan is Lantus 20 units at bedtime. 4. Esophagitis. IV Protonix. 5. Keep LDL less than 100. Discussed with the patient about chronic drug abuse. 6. History of hepatitis C, stable with hepatomegaly and liver function tests were normal. Will consider tomorrow hepatitis genotype and viral load and will follow up. cc: Duy Spencer MD
[2018-09-29] MEDS: HUMULIN R SUBQ SCH ×4 (06:33→21:44)
[2018-09-29] MEDS: LOVENOX SUBQ SCH ×2 (07:48→21:43)
[2018-09-29] MEDS: SUBUTEX SL SCH ×2 (09:59→21:44)
[2018-09-29] MEDS: ZOFRAN IV PRN (11:40)
[2018-09-29] MEDS: PROTONIX IV SCH (15:23)
--- NOTE | 2018-09-29 20:59 | PROGRESS NOTE ---
DATE: 09/29/2018 SUBJECTIVE: The patient is doing better. No complaints. OBJECTIVE: Vital signs: Temperature is 98 degrees, pulse is 82, blood pressure is stable. HEENT Exam: Within normal limits. Chest: Clear. Heart: Sounds are regular. Abdomen: Belly is soft, nontender. Good bowel sounds. Extremities: Right leg swelling is better. INVESTIGATIONS: Cholesterol 153, LDL 95, homocystine 9.1. TSH is normal. Thrombophilia workup was pending. ASSESSMENT AND PLAN: 1. Deep venous thrombosis in the right leg, rule out pulmonary embolus. Waiting for thrombophilia workup. We will change to Xarelto pack in the morning. Continue on Lovenox. 2. Type 2 diabetes, poorly controlled, on Lantus 20 units at bedtime. We will slowly titrate. 3. Esophagitis. Protonix 40 mg daily. 4. Chronic pain on buprenorphine 8 mg sublingual b.i.d. 5. LDL is less than 100. 6. Hepatitis C. Follow up on viral load and based on that further recommendations will be followed. LEVEL OF DOCUMENTATION: 25 minutes cc: Duy Spencer MD MTDJuan Jose
[2018-09-29] MEDS: BASAGLAR SUBQ SCH (21:45)
[2018-09-30] MEDS: HUMULIN R SUBQ SCH (06:55)
[2018-09-30 07:46] VITALS: BP 109/75
[2018-09-30] MEDS: LOVENOX SUBQ SCH (08:37)
[2018-09-30] MEDS: SUBUTEX SL SCH (08:40)
[2018-09-30] MEDS: ZOFRAN IV PRN (08:41)
--- NOTE | 2018-10-01 13:32 | Extremity Venous Study ---
PROCEDURE NAME: Venous U/S Right Leg - 09/27/2018 PROCEDURE: Right lower extremity venous duplex study. DATE OF STUDY: 09/27/2018. REFERRING PHYSICIAN: Dr. Spencer. READING PHYSICIAN: Dr. William. [place] FARMER: Tino. INDICATION: Right leg pain. FINDINGS: The deep and superficial veins of the right lower extremity were imaged throughout their course. There is thrombus in the distal posterior tibial vein. Otherwise, the deep and superficial veins of the right leg were compressible, patent without thrombus. INTERPRETATION: Acute DVT of the right posterior tibial vein. cc: MD Duy Bess MD
--- NOTE | 2018-10-02 04:06 | DISCHARGE SUMMARY ---
ADMISSION DATE: 09/27/2018 DISCHARGE DATE: 09/30/2018 DISCHARGING DIAGNOSIS: Right leg deep venous thrombosis, posterior tibial vein. SECONDARY DIAGNOSES: 1. Metabolic syndrome. 2. Insulin-dependent type 2 diabetes, poorly controlled, history of noncompliance. 3. Hyperuricemia. 4. History of illicit drug abuse, IV drug abuse. 5. Hyperlipidemia. 6. Chronic hepatitis C virus. BRIEF HISTORY: Please see the H and P that was done on 09/27/2018. In brief, he is a 37-year-old white gentleman, noncompliant, IV drug abuse, multiple skin infections, abscess, Staph bacteremia treated 1 time, possible endocarditis with chronic hepatitis C, currently under detox program with Subutex and came in with right leg pain, swelling, and right-sided chest pain. HOSPITAL COURSE: Clinical findings suspicious for DVT with PE. D-dimer is normal. Venous Doppler showed posterior tibial vein DVT. CT of the chest was negative for pulmonary embolism. cc: Duy Spencer MD
--- NOTE | 2018-10-02 04:15 | DISCHARGE SUMMARY ---
ADMISSION DATE: 09/27/2018 DISCHARGE DATE: 09/30/2018 ADDENDUM DISCHARGING DIAGNOSES: 1. Right leg deep venous thrombosis at the distal posterior tibial vein. 2. Type 2 diabetes, insulin-dependent, poorly controlled. 3. Chronic hepatitis C virus. 4. Hyperlipidemia. 5. Metabolic syndrome. 6. IV drug abuse with crystal meth. 7. History of multiple soft tissue infections with Staph bacteremia, treated with endocarditis previously. 8. Distal esophagitis due to acid reflux disease. BRIEF HISTORY: Please see the H and P that was done on 09/27/2018. In brief, he is a 37-year-old white gentleman with above problems, came to my office with right leg swelling and right-sided chest pain, shortness of breath. Clinical findings suspicious for DVT. HOSPITAL COURSE: 1. Indeed, the patient has a right posterior tibial vein thrombosis acutely on the right leg. Nevertheless, CT pulmonary angiogram negative for PE. The patient was started on Lovenox and further workup for thrombophilia as follows: Antiphospholipid antibody is negative. Prothrombin G 2021 gene mutation is negative. Factor Leiden antibody mutation is negative. Antithrombin 3 is low level of normal. Lupus antibody coagulant is negative. Protein S is slightly low. Homocystine is 9.1, which is normal. Subsequently, he changed to the Xarelto 15 mg p.o. b.i.d. for 3 weeks and then once a day. At least he needs anticoagulation for 3 to 6 months. 2. Distal esophagitis. Continue on proton pump inhibitor. Currently asymptomatic. 3. IV drug abuse on detox programs, on buprenorphine 8 mg sublingual b.i.d. 4. Chronic hepatitis C infection. He has a genotype 1a and viral load is close to 1 million. 5. Uncontrolled diabetes. Started on insulin. A1c is 13.1. LABS: CBC: White cell count 5.5, hematocrit 40, platelets 109,000. SMA 7 is normal. A1c 13.9. Triglycerides 89, cholesterol 153, LDL is 95. Homocystine is normal. PROCEDURES: 1. CT angiogram, no PE, questionable thickening of the distal esophagus, hepatomegaly, cholecystectomy. 2. Venous Doppler's, acute DVT in the right posterior tibial vein. PLAN OF CARE: 1. For right leg deep venous thrombosis, negative thrombophilia workup. Continue on Xarelto as discussed at least for 3 to 6 months. 2. Lantus 25 units subcutaneous in the morning. Continue sliding scale with insulin coverage. He could not tolerate metformin. Consider using Giardia or Farxiga down the line. 3. Acid reflux disease on Prilosec 40 daily. LDL is optimum range. 4. For chronic drug abuse, he is on Subutex 8 mg sublingual b.i.d. 5. Follow up in my office in 2 weeks. cc: Duy Spencer MD
== END 2018-09-30 09:17 | disposition home or self-care (01) | DRG 301 ==
LOC: DIRADM → OBSVTOIN 14:53 → 4N 15:42
PROVIDERS: ADMIT Internal Medicine; ATTEND Internal Medicine
CPT/HCPCS: 71275; 80053; 80061; 81240; 81241; 82550; 82607; 82948; 83036; 83090; 83880; 84443; 84484; 84550; 85025; 85300; 85301; 85306; 85379; 85612; 85613; 85730; 86147; 87522; 93971; A9270; C9113; J1650; J2405; J7030; Q9967; S0164; XXXXX